=== PATIENT | male | born 1965 | race Caucasian/White ===

== ENCOUNTER 2017-03-13 13:21 | Emergency (ER) | payer OTHER ==
[2017-03-13] MEDS ORDERED: diPHENhydraMINE PO* 50 MG PO ONE (13:33)
[2017-03-13] MEDS ORDERED: methylPREDNISolone 125 MG* 2 ML VIAL IM ONE (13:33)
[2017-03-13] MEDS ORDERED: Famotidine TAB* 20 MG PO ONE (13:33)
--- NOTE | 2017-03-13 14:19 | UC ---
Allergic Reaction HPI - HPI Summary HPI Summary: STUNG BY WHAT HE BELIEVES WERE HORNETS ON LEFT SIKH AND RIGHT PREAURICULAR AREA THIS MORNING AROUND 10:30AM WHILE GETTING IN THE CAR TO GO TO WORK. FELT CHEST TIGHTEN UP AND DEVELOPED ITCHY RED RASH ON NECK AND ABDOMEN. ALSO DEVELOPED SWELLING AROUND HIS EYES AND IN HIS LIPS AND TONGUE. NO RESPIRATORY INVOLVEMENT. TOOK BENADRYL AND FACIAL SWELLING HAS RESOLVED. - History of Current Complaint Chief Complaint: UCAllergicReaction Stated Complaint: BEE STING Time Seen by Provider: 03/13/17 13:32 Hx Obtained From: Patient Onset/Duration: Sudden Onset, Lasting Minutes, Still Present Severity Initially: Moderate Severity Currently: Moderate Pain Intensity: 3 Pain Scale Used: 0-10 Numeric Location: Diffuse Character: Swelling, Pruritus, Hives Aggrevating Factor(s): Nothing Alleviating Factor(s): Antihistamines - BENADRYL [employer] Associated Signs And Symptoms: Positive: Rash. Negative: Abdominal Pain, Chest Pain, Cough Wheezing, Diaphoresis, Difficulty Breathing, Hoarseness, Lightheadedness, Nausea, Syncope, Throat Tightening, Vomiting - Allergies/Home Medications Allergies/Adverse Reactions: Allergies Allergy/AdvReac Type Severity Reaction Status Date / Time No Known Allergies Allergy Verified 03/13/17 13:29 Home Medications: Home Medications Multiple Vitamin [Multi Vitamin] 1 tab PO DAILY 03/13/17 [History Confirmed ] PMH/Surg Hx/FS Hx/Imm Hx Previously Healthy: Yes - Surgical History Surgical History: Yes Surgery Procedure, Year, and Place: splenectomy - Family History Known Family History: Positive: Hypertension - Social History Alcohol Use: Rare Substance Use Type: Marijuana Smoking Status (MU): Current Every Day Smoker Review of Systems Constitutional: Negative Skin: Rash Respiratory: Negative Cardiovascular: Negative Gastrointestinal: Negative All Other Systems Reviewed And Are Negative: Yes Physical Exam Triage Information Reviewed: Yes Appearance: Well-Appearing, No Pain Distress, Well-Nourished Vital Signs: Initial Vital Signs Temp 98.4 F 03/13/17 13:23 Pulse 81 03/13/17 13:23 Resp 18 03/13/17 13:23 BP 159/100 03/13/17 13:23 Pulse Ox 98 03/13/17 13:23 Vital Signs Reviewed: Yes Eyes: Positive: Conjunctiva Clear ENT: Positive: Hearing grossly normal, TMs normal, Other: - UVULA EDEMATOUS Neck: Positive: Supple, Nontender, No Lymphadenopathy Respiratory Exam: Normal Cardiovascular Exam: Normal Abdomen Description: Positive: Soft Musculoskeletal: Positive: No Edema Neurological: Positive: Alert Psychological: Positive: Age Appropriate Behavior Skin: Positive: Other - ERYTHEMATOUS BLOTCHY RASH OVER ABDOMEN AND BACK. NECK BRIGHT RED. NO EYELID, LIP OR TONGUE EDEMA Re-Evaluation - Re-Evaluation First Eval Re-Evaluation Time: 14:20 - FEELS MUCH BETTER, LESS TIGHT AND RASH IS IMPROVED AFTER 125MG SOLU-MEDROL AND PEPCID 40MG Change: Improved Allergic Reaction Course/Dx - Differential Dx/Diagnosis Provider Diagnoses: ALLERGIC REACTION Discharge - Discharge Plan Condition: Stable Disposition: HOME Prescriptions: predniSONE TAB* [Deltasone TAB*] 50 mg PO DAILY #5 tab Patient Education Materials: General Allergic Reaction (ED) Referrals: Linda Beard MD [Primary Care Provider] - If Needed Additional Instructions: YOU RECEIVED 125MG SOLU-MEDROL AND 40MG PEPCID TODAY. AVOID HEAT AND HOT WATER TAKE OTC ANTIHISTAMINE DAILY (CLARITIN (LORATADINE), ZYRTEC (CETIRIZINE) OR WILLOW (FEXOFENADINE) IN THE MORNING, BENADRYL AT NIGHT) DO NOT SCRATCH KEEP COOL, CLEAN AND DRY TAKE PREDNISONE STARTING TOMORROW. OKAY TO STOP COURSE EARLY IF FEELING BETTER. GO TO THE ER WITHOUT FAIL IF YOUR SYMPTOMS RECUR OR YOU DEVELOP ANY RESPIRATORY INVOLVEMENT.
== END 2017-03-13 14:43 | disposition home or self-care (01) ==
LOC: UCEAST 13:21
DX: T63.451A Toxic effect of venom of hornets, accidental (unintentional), initial encounter (principal); T78.40XA Allergy, unspecified, initial encounter; Y92.9 Unspecified place or not applicable; Z72.0 Tobacco use
CPT/HCPCS: 96372; 99202; A9270-GY; G0463; J2930